=== PATIENT | male | born 1975 | race Caucasian/White ===

== ENCOUNTER 2020-11-17 14:53 | Emergency (ER) | payer BC ==
[~2020-11-17 14:53] MED LIST: ALPRAZOLAM0.5 MG PO; FISH OIL 1,0001 EACH PO; HYDROCHLOROTHIA25 MG PO; LISINOPRIL20 MG PO; MULTIVITAMINS1 EAC1 PO; NORVASC 5 MG TAB5 MG PO; SYNTHROID 100100 MCG PO; TESTOSTERON100 MG/ML IM
[2020-11-17 19:15] LABS: HEMOGLOBIN 16.9 gm/dl (14.0-17.5); RED BLOOD COUNT 5.38 M/UL (4.20-5.50); WHITE BLOOD COUNT 5.1 K/UL (4.5-11.0)
[2020-11-17 19:42] LABS: BUN/CREATININE RATIO 15 (0-10)
== END 2020-11-17 21:30 | disposition home or self-care (01) ==
LOC: ER1 14:53
PROVIDERS: Preventive Medicine Occupational Medicine
DX: U07.1 COVID-19 (principal); Z23 Encounter for immunization
CPT/HCPCS: 36600; 71045; 80053; 82550; 82553; 82803; 83605; 83874; 83880; 84484; 85025; 85652; 86140; 99285; M0239

== ENCOUNTER → 2021-08-16 | Outpatient (CLI) | payer BC | LOC: KOH-I 09:28 | DX: R19.7 Diarrhea, unspecified (principal); R10.11 Right upper quadrant pain | CPT/HCPCS: 76705 ==

== ENCOUNTER → 2021-09-11 | Outpatient (CLI) | payer BC | LOC: NM 08-27 14:30 | DX: R10.11 Right upper quadrant pain (principal); R19.7 Diarrhea, unspecified; R93.5 Abnormal findings on diagnostic imaging of other abdominal regions, including retroperitoneum | CPT/HCPCS: 78227; A9537; J2805 ==

== ENCOUNTER → 2021-10-31 | Outpatient (CLI) | payer BC ==
[~2021-10-31] MED LIST changes: +ATIVAN1 MG PO; +LASIX20 MG PO; +LISINOPRIL10 MG PO; +MAGNESIUM OXID400 M2 PO; +OPSUMIT10 MG PO; +POTASSIUM CHLO10 MEQ PO; +SILDENAFIL20 MG PO; +UPTRAVI PO
[2021-10-31 13:56] LABS: BUN/CREATININE RATIO 18 (0-10)
== END ==
LOC: OPSV2 11:00
PROVIDERS: Anesthesiology
DX: Z01.818 Encounter for other preprocedural examination (principal)
CPT/HCPCS: 36415; 80048; 93005

== ENCOUNTER → 2022-02-14 | Outpatient (CLI) | payer BC ==
[2022-02-14 12:29] LABS: ADENOVIRUS F 40/41 Not Detected (Negative); ASTROVIRUS Not Detected (Negative); CAMPYLOBACTER Not Detected (Negative); CRYPTOSPORIDIUM Not Detected (Negative); E.COLI 0157 Not Detected (Negative); ENTAMOEBA HISTOLYTICA Not Detected (Negative); ENTEROAGGREGATIVE E.COLI (EAEC Not Detected (Negative); ENTEROPATHOGENIC E.COLI (EPEC) Not Detected (Negative); ENTEROTOXIGENIC E.COLI (ETEC) Not Detected (Negative); GIARDIA LAMBLIA Not Detected (Negative); NOROVIRUS GI/GII Not Detected (Negative); PLESIOMONAS SHIGELLOIDES Not Detected (Negative); ROTOVIRUS A Not Detected (Negative); SALMONELLA Not Detected (Negative); SAPOVIRUS Not Detected (Negative); SHIG/ENTEROINVAS.ECOLI (EIEC) Not Detected (Negative); SHIGA-LIK TOX.PRO.E.COLI (STEC Not Detected (Negative); VIBRIO Not Detected (Negative); VIBRIO CHOLERAE Not Detected (Negative); YERSINIA ENTEROCOLITICA Not Detected (Negative)
[2022-02-14 12:33] LABS: HEMOGLOBIN 16.8 gm/dl (14.0-17.5); RED BLOOD COUNT 5.31 M/UL (4.20-5.50); WHITE BLOOD COUNT 5.6 K/UL (4.5-11.0)
[2022-02-14 13:07] LABS: BUN/CREATININE RATIO 19 (0-10)
[2022-02-14 16:37] LABS: CLOSTRIDIUM DIFFICILE TOX A/B Not Detected (Negative)
[2022-02-15 07:12] LABS: VITAMIN D, 25-HYDROXY 39.3 ng/mL (30.0-100.0)
[2022-02-15 08:18] LABS: IMMUNOGLOBULIN A, QN, SERUM 363 mg/dL (90-386)
[2022-02-15 14:13] LABS: T-TRANSGLUTAMINASE (TTG) IGA <2 U/mL (0-3)
[2022-02-17 02:07] LABS: TESTOSTERONE, SERUM 365 ng/dL (264-916)
[2022-02-19 15:14] LABS: STRONGYLOIDES IGG ANTIBODY Negative (Negative)
== END ==
LOC: LAB 11:38
PROVIDERS: Nurse Practitioner Family
DX: R11.0 Nausea (principal); R19.7 Diarrhea, unspecified; R10.9 Unspecified abdominal pain; E55.9 Vitamin D deficiency, unspecified; E78.2 Mixed hyperlipidemia
CPT/HCPCS: 36415; 74018; 80053; 80061; 82150; 82607; 82656; 82784; 83516; 83690; 83735; 84402; 84403; 84443; 85025; 86140; 86682; 87177; 87209; 87338; 87507